=== PATIENT | male | born 1995 | race African-American/Black ===

== ENCOUNTER 2018-01-21 04:24 | Emergency (ER) | payer BC ==
[2018-01-21 04:29] VITALS: BP 139/93; PULSE 52; RESP 16; TEMP 97.7
--- NOTE | 2018-01-21 04:45 | ED ---
General Adult HPI - General Chief complaint: Eye Problems Stated complaint: ENT Time Seen by Provider: 01/21/18 04:28 Source: patient, RN notes reviewed, old records reviewed Mode of arrival: ambulatory Limitations: no limitations - History of Present Illness Initial comments: 22-year-old male with no significant past medical history presents for evaluation of yellow crusting in his right eye. Symptoms have been present for the past 24 hours. Patient does report some nasal congestion and rhinorrhea. States he's having yellow mucus. Denies fever or chills. Denies cough or dyspnea. Denies abdominal pain nausea or vomiting. No systemic symptoms. Denies pain or vision changes. No known sick contacts. No foreign body sensation, no injury reported. - Related Data Previous Rx's Medication Instructions Recorded Polymyxin B-Trimeth Sulf Ophth 2 drops RIGHT EYE Q6H #10 ml 01/21/18 [Polytrim Opthalmic] Allergies Allergy/AdvReac Type Severity Reaction Status Date / Time No Known Allergies Allergy Verified 01/21/18 04:29 Review of Systems ROS Statement: Those systems with pertinent positive or pertinent negative responses have been documented in the HPI. ROS Other: All systems not noted in ROS Statement are negative. Past Medical History Past Medical History: No Reported History History of Any Multi-Drug Resistant Organisms: None Reported Past Surgical History: Adenoidectomy Past Psychological History: No Psychological Hx Reported Smoking Status: Never smoker Past Alcohol Use History: Occasional Past Drug Use History: None Reported General Exam Limitations: no limitations General appearance: alert, in no apparent distress Head exam: Present: atraumatic, normocephalic Eye exam: Present: PERRL, EOMI, conjunctival injection, other (Purulent Drainage , normal extraocular movements, no proptosis). Absent: scleral icterus, periorbital swelling, periorbital tenderness ENT exam: Present: normal exam, TM's normal bilaterally Neck exam: Present: normal inspection. Absent: tenderness, meningismus Respiratory exam: Present: normal lung sounds bilaterally. Absent: respiratory distress, wheezes Cardiovascular Exam: Present: normal rhythm, bradycardia GI/Abdominal exam: Present: soft. Absent: distended, tenderness Extremities exam: Present: normal inspection, normal capillary refill. Absent: pedal edema Neurological exam: Present: alert Course Vital Signs 01/21/18 04:26 Temperature 97.7 F Pulse Rate 52 L Respiratory 16 Rate Blood Pressure 139/93 O2 Sat by Pulse 100 Oximetry Medical Decision Making - Medical Decision Making 22-year-old male with signs and symptoms consistent with conjunctivitis. He is instructed on hand washing and infection prevention. He will be prescribed antibiotic to prevent secondary infection. He will return with helmet fever or worsening symptoms. He will return with vision changes or swelling of the eye. Disposition Clinical Impression: Conjunctivitis Disposition: HOME SELF-CARE Condition: Good Instructions: Conjunctivitis (ED) Prescriptions: Polymyxin B-Trimeth Sulf Ophth [Polytrim Opthalmic] 2 drops RIGHT EYE Q6H #10 ml Is patient prescribed a controlled substance at d/c from ED?: No Referrals: Wes Whitlock MD [Primary Care Provider] - 1-2 days Time of Disposition: 04:44
== END 2018-01-21 04:54 | disposition home or self-care (01) ==
LOC: EC 04:24
DX: H10.9 Unspecified conjunctivitis (principal); R09.81 Nasal congestion; J34.89 Other specified disorders of nose and nasal sinuses
CPT/HCPCS: 99283